=== PATIENT | female | born 1985 | race Two or more races ===

== ENCOUNTER 2016-06-02 14:19 | Emergency (ER) | payer MEDICAID ==
[~2016-06-02] VITALS: Ht 157.5 cm; Wt 83.9 kg
[2016-06-02 14:38] VITALS: BP 131/88
== END 2016-06-02 18:26 | disposition home or self-care (01) ==
LOC: ER 14:24
DX: H61.23 Impacted cerumen, bilateral (principal); J40 Bronchitis, not specified as acute or chronic; J45.909 Unspecified asthma, uncomplicated
CPT/HCPCS: 69209